=== PATIENT | female | born 1940 | race African-American/Black ===

== ENCOUNTER 2017-04-07 23:53 | Inpatient (IN) | payer OTHER, MEDICARE ==
[~2017-04-07] VITALS: Ht 165.1 cm; Wt 72.9 kg
[~2017-04-07 23:53] MED LIST: DEXTROSE 50%-WATER 25 GM/50 ML SYRINGE IVP ONE; NALOXONE HCL 1 MG/ML 2 ML SYG IM ONE
[2017-04-08] VITALS (8 sets, daily range): BP systolic 41–163; BP diastolic 21–84
[2017-04-08 00:08] LABS: GLUCOSE,POINT OF CARE 38 MG/DL (70-110)
[2017-04-08 00:18] LABS: GLUCOSE,POINT OF CARE 133 MG/DL (70-110)
[2017-04-08] MEDS ORDERED: FERR-89 PO (00:18)
[2017-04-08] MEDS ORDERED: METO-558 PO (00:18)
[2017-04-08] MEDS ORDERED: ONDA4VIA30 IV (00:18)
[2017-04-08] MEDS ORDERED: INSNOV SQ (00:18)
[2017-04-08] MEDS ORDERED: AMPI1VIA IVPB (00:18)
[2017-04-08] MEDS ORDERED: HYDR-4061 PO (00:18)
[2017-04-08 00:19] LABS: EOSINOPHILS % (AUTO) 0 % (1.0-6.0); HEMATOCRIT 27.9 % (36-46); HEMOGLOBIN 8.4 g/dL (12.0-16.0); LYMPHOCYTES # (AUTO) 0.9 K/uL (1.0-4.8); LYMPHOCYTES % (AUTO) 7.5 % (22.0-44.0); MEAN CORPUSCULAR HEMOGLOBIN 25.9 pg (26.0-34.0); MEAN CORPUSCULAR HGB CONC 30.2 G/dL (31.0-37.0); MEAN CORPUSCULAR VOLUME 86 fL (80-100); MONOCYTES # (AUTO) 0.3 K/uL (0.1-1.0); MONOCYTES % (AUTO) 2.7 % (2.0-9.0); NEUTROPHILS # (AUTO) 10.8 K/uL (1.8-7.7); PLATELET COUNT (AUTO) 403 K/uL (150-450); RED BLOOD CELL COUNT(AUTO) 3.26 MIL/uL (4.00-5.20)
[2017-04-08 00:20] LABS: NEUTROPHILS % (AUTO) 89.8 % (40.0-70.0)
[2017-04-08 00:28] LABS: INR 1.4 (0.9-1.1); PROTHROMBIN TIME 15.2 SEC (9.4-11.6)
[2017-04-08] MEDS ORDERED: NALOXONE HCL 1 MG/ML 2 ML SYG IVP ONE (00:30)
[2017-04-08] MEDS ORDERED: DEXTROSE 50%-WATER 25 GM/50 ML SYRINGE IVP ONE (00:30)
[2017-04-08 00:31] LABS: ANION GAP 22 mmol/L (8-16); CARBON DIOXIDE 17 mmol/L (22-29); CHLORIDE 102 mmol/L (98-107); POTASSIUM 5.9 mmol/L (3.5-5.1); SODIUM SERUM 141 mmol/L (136-145)
[2017-04-08 00:32] LABS: ALANINE AMINOTRANSFERASE 186 U/L (12-78); BILIRUBIN,TOTAL 0.5 mg/dL (0.1-1.0); CALCIUM, TOTAL 8.3 mg/dL (8.8-10.5); CREATINE KINASE, TOTAL 108 U/L (26-192); CREATININE 7.56 mg/dL (0.60-1.30); GLOMERULAR FILTR. RATE CALC 6 mL/min (>60); TOTAL PROTEIN, SERUM 5.7 g/dL (6.4-8.2); UREA NITROGEN, BLOOD 88 mg/dL (7-18)
[2017-04-08 00:33] LABS: ALBUMIN 1.1 g/dL (3.4-5.0)
[2017-04-08 00:39] LABS: ABG A-A DIFF O2 118.1 mmHg (10-20.0); ABG BASE EXCESS -24.5 mmol/L (-2.0-3.0); ABG OXYHEMOGLOBIN 97.8 % (94.0-100.0); ABG PCO2 36 mmHg (35-45); TEMPERATURE, FAHRENHEIT, BG 98.2 FAHREN (96.0-98.6)
[2017-04-08 00:40] LABS: ABG HCO3 7.3 mmol/L (22.0-26.0); ABG PH 6.944 (7.35-7.450); ALLEN TEST, BLOOD GAS Positive
[2017-04-08] MEDS ORDERED: SODIUM BICARBONATE [ADULT] 8.4% 50 MEQ/50 ML SYRINGE IVP ONE (00:45)
[2017-04-08 00:47] LABS: ASPARTATE AMINOTRANSFERASE 1255 U/L (15-37); B-TYPE NATRIURETIC PEPTIDE 500 pg/mL (0-100); CREATINE KINASE MB 0.7 ng/mL (0-5)
[2017-04-08 01:03] LABS: GLUCOSE COMMENT 1 Doctor Notified; GLUCOSE,POINT OF CARE 103 MG/DL (70-110)
[2017-04-08] MEDS ORDERED: 0.9% SODIUM CHLORIDE 10 ML SYRINGE IVP PRN (01:30)
[2017-04-08] MEDS ORDERED: ONDANSETRON HCL 4 MG/2 ML VIAL IVP PRN (01:30)
[2017-04-08 02:26] LABS: REFLEX LACTIC ACID? YES YES
[2017-04-08 02:29] LABS: APPEARANCE,URINE TURBID (CLEAR)
[2017-04-08 02:30] LABS: ADD UA MICROSCOPIC YES; GLUCOSE, URINE (UA) NEGATIVE (NEGATIVE); KETONES,URINE 15 mg/dL (NEGATIVE); LEUKOCYTE ESTERASE ,URINE LARGE (NEGATIVE); OCCULT BLOOD,URINE LARGE (NEGATIVE); PROTEIN,URINE SEE CONFIRM (NEGATIVE)
[2017-04-08 02:47] LABS: RBC,URINE Full Field /HPF (0-2); SULFOSALICYLIC ACID,URINE 3+ (Negative); WBC,URINE Full Field /HPF (0-5)
[2017-04-08 03:08] LABS: ABG A-A DIFF O2 273.6 mmHg (10-20.0); ABG BASE EXCESS -18.6 mmol/L (-2.0-3.0); ABG HCO3 11.3 mmol/L (22.0-26.0); ABG OXYHEMOGLOBIN 97.8 % (94.0-100.0); ABG PCO2 26 mmHg (35-45); TEMPERATURE, FAHRENHEIT, BG 96.2 FAHREN (96.0-98.6)
[2017-04-08 03:13] LABS: ABG PH 7.193 (7.35-7.450); ALLEN TEST, BLOOD GAS Positive
[2017-04-08] MEDS ORDERED: MORPHINE SULFATE 2 MG/ML SYRINGE IVP PRN (05:15)
[2017-04-08] MEDS ORDERED: ACETAMINOPHEN 325 MG TABLET PO PRN (06:30)
[2017-04-08] MEDS ORDERED: BISACODYL 10 MG RECTAL RECTAL SUPPOSITORY PR PRN (06:30)
[2017-04-08 06:43] LABS: GLUCOSE,POINT OF CARE 92 MG/DL (70-110)
[2017-04-08] MEDS: PANTOPRAZOLE SODIUM 40 MG/VIAL IVP SCH ×2 (09:00→09:10)
[2017-04-09] VITALS: BP 40/24
== END 2017-04-09 04:15 | disposition expired | DRG 871 ==
LOC: EMS 23:54 → ICU 04-08 01:53 → EMS 04-08 01:59
PROVIDERS: ADMIT Internal Medicine; ATTEND Internal Medicine
PROC: 5A1935Z Respiratory Ventilation, Less than 24 Consecutive Hours (ICD-10-PCS; principal; 2017-04-08)
PROC: 0BH17EZ Insertion of Endotracheal Airway into Trachea, Via Natural or Artificial Opening (ICD-10-PCS; 2017-04-08)
DX: A41.9 Sepsis, unspecified organism (principal); E43 Unspecified severe protein-calorie malnutrition; J96.01 Acute respiratory failure with hypoxia; G92 Toxic encephalopathy; I13.2 Hypertensive heart and chronic kidney disease with heart failure and with stage 5 chronic kidney disease, or end stage renal disease; J90 Pleural effusion, not elsewhere classified; I48.91 Unspecified atrial fibrillation; E11.22 Type 2 diabetes mellitus with diabetic chronic kidney disease; N18.6 End stage renal disease; K92.2 Gastrointestinal hemorrhage, unspecified; N39.0 Urinary tract infection, site not specified; R64 Cachexia; E87.2 Acidosis; E11.649 Type 2 diabetes mellitus with hypoglycemia without coma; I50.9 Heart failure, unspecified; E87.5 Hyperkalemia; C53.9 Malignant neoplasm of cervix uteri, unspecified; Z66 Do not resuscitate; I25.10 Atherosclerotic heart disease of native coronary artery without angina pectoris; L89.90 Pressure ulcer of unspecified site, unspecified stage; Z85.41 Personal history of malignant neoplasm of cervix uteri; Z91.15 Patient's noncompliance with renal dialysis; E05.90 Thyrotoxicosis, unspecified without thyrotoxic crisis or storm; Z68.26 Body mass index [BMI] 26.0-26.9, adult
CPT/HCPCS: 31500; 51702; 82805; 82962; 83605; 87040; 87081; 87086; 87106; 93005; 94002; 96374; 96375; 99291; C9113; J2270; J2310; J3490